=== PATIENT | male | born 1980 | race Caucasian/White ===

== ENCOUNTER 2016-07-27 14:34 | Emergency (ER) | payer OTHER ==
[~2016-07-27] VITALS: Ht 172.7 cm; Wt 72.6 kg
[~2016-07-27 14:34] MED LIST: AMOXICILLIN500 MG PO; HYDROCODONE/ACE1 TA1 PO; TRIAMCINOLONE 0.1 GM TOP
[2016-07-27 14:39] VITALS: BP 156/88
--- NOTE | 2016-07-27 16:17 | ED GENERAL ADULT ---
History of Present Illness General Chief Complaint: General Adult Stated Complaint: MISSED METHADONE APPOINT YEST, FEELS SICK Source: patient, old records Exam Limitations: no limitations Vital Signs & Intake/Output Vital Signs & Intake/Output Vital Signs Date Time Temp Pulse Resp B/P Pulse O2 O2 Flow FiO2 Ox Delivery Rate 07/27 1439 97.2 89 18 156/88 99 Room Air Allergies Coded Allergies: acetaminophen (From TYLENOL) (Severe, THROAT CLOSES, SWEAT A LOT 07/27/16) Reconcile Medications Methadone Hydrochloride (Methadone HCl) 10 MG TABLET 40 MG PO DAILY MENTAL HEALTH (Reported) Triage Note: 36 Y/O MALE C/O FEELING NAUSEOUS AND "SWEATY" SINCE 1000 TODAY. STATES HE MISSED HIS METHADONE APPT TODAY AND LAST HAD 40MG YESTERDAY. [facility]. Triage Nurses Notes Reviewed? yes HPI: Patient presents for evaluation of methadone withdrawal. Patient states he was incarcerated over yesterday and through this morning and was unable to get to the methadone maintenance program. He is starting to "feel sick". He is starting to feel nauseous and sweaty and shaky. Symptoms are moderate to severe in intensity and have been constant since gradual onset over yesterday and today. Nothing seems to make him feel better. Past History Travel History Traveled to [place] past 21 day No Medical History Any Pertinent Medical History? see below for history Psychiatric: ADHD Surgical History Surgical History: non-contributory Psychosocial History What is your primary language Qatari Tobacco Use: Current Daily Use Daily Tobacco Use Amount/Type: =< 4 Cigarettes daily Family History Hx Contributory? No Review of Systems Review of Systems Constitutional: Reports: no symptoms. EENTM: Reports: no symptoms. Respiratory: Reports: no symptoms. Cardiovascular: Reports: no symptoms. GI: Reports: no symptoms. Genitourinary: Reports: no symptoms. Musculoskeletal: Reports: no symptoms. Skin: Reports: no symptoms. Neurological/Psychological: Reports: tremors. Hematologic/Endocrine: Reports: no symptoms. Immunologic/Allergic: Reports: no symptoms. All Other Systems: Reviewed and Negative Physical Exam Physical Exam General Appearance: SEE BELOW Comments: Gen.: Well-nourished, well-developed, no acute respiratory distress. Head: Normocephalic, atraumatic. Eyes: Normal inspection bilaterally Ears: Normal inspection bilaterally Nose: Normal inspection Throat/mouth : Moist mucosa Neck: Supple, full range of motion, no goiter Heart: Regular rate and rhythm, no murmurs rubs or gallops Lungs: Clear to auscultation bilaterally with normal air entry Chest: Nontender Back: Normal range of motion Abdomen: Soft, nontender, nondistended, normal bowel sounds Extremities: Normal range of motion grossly, equal radial pulses, no cyanosis clubbing or edema Neurologic: Cranial nerves grossly intact, speech is clear Skin: warm and dry Psychiatric: Calm, cooperative, no apparent delusions or hallucinations Core Measures ACS in differential dx? No CVA/TIA Diagnosis: No Severe Sepsis Present: No Septic Shock Present: No Progress Differential Diagnoses I considered the following diagnoses in my evaluation of the patient: Methadone withdrawal Plan of Care: See discharge instructions Initial ED EKG: none Comments: Patient's case discussed with Carolee at the methadone maintenance clinic. Carolee states that he did receive yesterday's dose of just after 8:00 in the morning. She states they are open until 6:30 and he could be medicated there for today's dose. Departure Departure Disposition: HOME OR SELF CARE Condition: Stable Clinical Impression Primary Impression: Methadone dependence Referrals: PATIENT HAS NO PRIMARY CARE DR (PCP/Family) Additional Instructions: Go to the methadone clinic to receive today's dose. They are open until 6:30. Departure Forms: Customer Survey General Discharge Information Critical Care Note Critical Care Note Critical Care Time: non-applicable
[2016-07-27] MEDS ORDERED: METHADONE HCL10 M1 PO (16:19)
== END 2016-07-27 16:25 ==
LOC: ERH 14:34
DX: F11.20 Opioid dependence, uncomplicated (principal)

== ENCOUNTER 2016-08-26 11:10 | Emergency (ER) | payer OTHER ==
[~2016-08-26] VITALS: Ht 172.7 cm; Wt 74.8 kg
[~2016-08-26 11:10] MED LIST changes: +METHADONE HCL10 M1 PO
[2016-08-26] MEDS ORDERED: ZOFRAN ODT4 M1 SL (11:43)
[2016-08-26] MEDS ORDERED: CLONIDINE HCL0.1 MG PO (11:43)
--- NOTE | 2016-08-26 11:43 | ED GENERAL ADULT ---
History of Present Illness General Chief Complaint: General Adult Stated Complaint: MISSED METHADONE CLINIC Source: patient, old records Exam Limitations: no limitations Vital Signs & Intake/Output Vital Signs & Intake/Output Vital Signs Date Time Temp Pulse Resp B/P Pulse O2 O2 Flow FiO2 Ox Delivery Rate 08/26 1145 97.5 72 18 143/76 08/26 1115 97.5 72 18 143/76 96 Room Air Room Air Allergies Coded Allergies: acetaminophen (From TYLENOL) (Severe, THROAT CLOSES, SWEAT A LOT 07/27/16) Reconcile Medications Clonidine HCl 0.1 MG TABLET 1-2 TAB PO Q4-6 PRN opiate dependence Methadone Hydrochloride (Methadone HCl) 10 MG TABLET 60 MG PO DAILY MENTAL HEALTH (Reported) Ondansetron (Zofran Odt) 4 MG TAB.RAPDIS 1 TAB SL TID PRN nausea Triage Note: TRIAGE: 36 Y/O MALE PRESENTS C/O MISSING METHADONE DOSAGE: 60MG DAILY. NOW REPORTS NAUSEA. CLINIC NAMED: [address] Triage Nurses Notes Reviewed? yes Onset: Just prior to arrival Duration: hour(s):, constant, continues in ED Timing: recent history Severity: moderate No Modifying Factors: none Associated Symptoms: nausea malaise HPI: Patient reports getting on the wrong train and missed his methadone dosage for the weekend. Complains of nausea feeling sick. He denies fever chills vomiting diarrhea chest pain cough shortness of breath headache dysuria rash bleeding. Past History Travel History Traveled to [place] past 21 day No Medical History Any Pertinent Medical History? see below for history Neurological: NONE EENT: NONE Cardiovascular: NONE Respiratory: NONE Gastrointestinal: NONE Hepatic: NONE Renal: NONE Musculoskeletal: NONE Psychiatric: IV drug abuse, substance abuse, ADHD Endocrine: NONE Blood Disorders: NONE Cancer(s): NONE LEVER TENDER/Reproductive: NONE Surgical History Surgical History: non-contributory Psychosocial History What is your primary language Slovak Tobacco Use: Current Daily Use Daily Tobacco Use Amount/Type: => 5 Cigarettes daily ETOH Use: occasional use Illicit Drug Use: denies illicit drug use Family History Hx Contributory? No Review of Systems Review of Systems Constitutional: Reports: see HPI, malaise. EENTM: Reports: no symptoms. Respiratory: Reports: no symptoms. Cardiovascular: Reports: no symptoms. GI: Reports: see HPI, nausea. Genitourinary: Reports: no symptoms. Musculoskeletal: Reports: no symptoms. Skin: Reports: no symptoms. Neurological/Psychological: Reports: no symptoms. Hematologic/Endocrine: Reports: no symptoms. Immunologic/Allergic: Reports: no symptoms. All Other Systems: Reviewed and Negative Physical Exam Physical Exam General Appearance: well developed/nourished, alert, awake, anxious, mild distress Head: atraumatic, normal appearance Eyes: Bilateral: normal appearance, PERRL, EOMI. Ears, Nose, Throat: normal pharynx, normal ENT inspection Neck: normal inspection, supple, full range of motion, no midline tenderness Respiratory: normal breath sounds, chest non-tender, no respiratory distress, quiet respiration, lungs clear Cardiovascular: regular rate/rhythm, normal peripheral pulses, norml femoral pulses equa Peripheral Pulses: 4+ carotid (R), 4+ carotid (L) Gastrointestinal: normal bowel sounds, soft, non-tender, no organomegaly Back: normal inspection, normal range of motion Extremities: normal inspection, normal capillary refill, normal range of motion, no edema, no ligament instability Neurologic/Psych: no motor/sensory deficits, awake, alert, oriented x 3, normal gait, normal mood/affect, pickling solution maker II-XII nml as tested Reflexes: 2+: bicep (R), bicep (L). Skin: intact, normal color, warm/dry Lymphatic: no anterior cervical liza Core Measures ACS in differential dx? No CVA/TIA Diagnosis: No Severe Sepsis Present: No Septic Shock Present: No Progress Differential Diagnoses I considered the following diagnoses in my evaluation of the patient: Opiate addiction dependence Plan of Care: Current Medications Sig/Jefferson Start time Last Medication Dose Stop Time Status Admin Clonidine 0.1 MG ONCE ONE 08/26 1145 AC (Catapres) 08/26 1146 Ondansetron HCl 4 MG ONCE ONE 08/26 1145 AC (Zofran) 08/26 1146 Initial ED EKG: none Departure Departure Time of Disposition: 114 Disposition: HOME OR SELF CARE Condition: Stable Clinical Impression Primary Impression: Opiate dependence Qualifiers: Substance use status: with unspecified opioid-induced disorder Qualified Code: F11.29 - Opioid dependence with unspecified opioid-induced disorder Referrals: PATIENT HAS NO PRIMARY CARE DR (PCP/Family) Departure Forms: Customer Survey General Discharge Information Prescriptions: Current Visit Scripts Ondansetron (Zofran Odt) 1 TAB SL TID PRN nausea #15 TAB Clonidine HCl 1-2 TAB PO Q4-6 PRN #20 TAB Critical Care Note Critical Care Note Critical Care Time: non-applicable
[2016-08-26 11:45] VITALS: BP 143/76
== END 2016-08-26 11:47 ==
LOC: ERH 11:10
DX: F11.20 Opioid dependence, uncomplicated (principal)
CPT/HCPCS: J3101